=== PATIENT | male | born 1995 | race Caucasian/White ===

== ENCOUNTER 2020-06-28 13:38 | Emergency (ER) | payer MEDICAID, OTHER ==
[2020-06-28] MEDS ORDERED: Sodium Chloride 0.9% 10 ML Syringe FLUSH PRN (13:50)
[2020-06-28] MEDS ORDERED: Sodium Chloride 0.9% 2.5 ML Syringe FLUSH PRN (13:50)
[2020-06-28] MEDS ORDERED: Lactated Ringers 1,000 ML IV ONE ×2 (13:52)
--- NOTE | 2020-06-28 14:09 | EDM.PDOC ---
ED HPI GENERAL MEDICAL PROBLEM - General Chief Complaint: Respiratory Problem Stated Complaint: SHORTNESS OF BREATH; AB PAIN Time Seen by Provider: 06/28/20 13:43 Source of Information: Reports: Patient, Old Records History Limitations: Reports: No Limitations - History of Present Illness INITIAL COMMENTS - FREE TEXT/NARRATIVE: 25-year-old male with no past medical history presenting with whole body cramping along with nausea and vomiting. Patient reports the onset of severe cramps in his hands yesterday evening while at work. This progressed to whole body cramping along with about 6 episodes of nonbloody emesis since yesterday evening. Also reports some mild shortness of breath and an occasional nonproductive cough. Patient initially went to primary medical clinic and was noted to be ill-appearing so he was directed to the emergency department. Here the patient's primary complaint is whole body cramping, worst in his left leg. He denies any fever, chills, chest discomfort, abdominal pain, hematemesis, diarrhea, rectal bleeding, recent illness or contact with known coronavirus patients. ROS: A 10-point review of systems was negative, except as noted in the HPI (or in the ROS section of this note). Past medical history: Reviewed, no additional pertinent history. Surgical history: Reviewed in system, no additional pertinent history. Social history: Reviewed in system, no additional pertinent history. Family history: Reviewed in system, no additional pertinent history. PHYSICAL EXAM Vital signs reviewed. Nursing notes reviewed. Constitutional: Awake, alert, non-distressed. Head: Normocephalic, atraumatic. Eyes: EOMI, conjunctiva normal, no discharge, no scleral icterus. Ears, Nose, Throat: External ears and nose normal, moist oral mucosa. Cardiovascular: Tachycardic, 2+ radial pulse, capillary refill less than 2 seconds. Pulmonary: normal work of breathing, no accessory muscle use. Soft expiratory wheezing Abdomen/GI: Obese, soft, nontender, nondistended, no guarding or rigidity, no masses. Musculoskeletal: No deformities. Integumentary: Appropriate color for ethnicity, warm, dry, no pallor or jaundice, no rash. Neurologic: Alert, answering questions appropriately, normal speech, no facial droop, moving all extremities well. Psychiatric: Appropriate mood and affect, normal thought process. - Related Data Allergies Allergy/AdvReac Type Severity Reaction Status Date / Time No Known Allergies Allergy Verified 06/28/20 15:03 Home Meds: Home Meds . [No Known Home Meds] 06/28/20 [History] ED ROS GENERAL - Review of Systems Review Of Systems: See Below ED EXAM, GENERAL - Physical Exam Exam: See Below Course - Vital Signs Text/Narrative:: On arrival the patient was initially hypotensive with a systolic blood pressure in the 70s and a heart rate of 120. IV access was established and 2 L of lactated Ringer's were rapidly infused, with improvement of his blood pressure. Blood cultures were sent off along with labs. Labs returned showing multiple derangements including significant leukocytosis with neutrophilic predominance. Lactate is 2.4. INR normal. Hyponatremia to 127. Creatinine significantly elevated at 3.9. AST and ALT are both elevated. CK 1809, diagnostic for rhabdomyolysis. Troponin I is elevated 0.187. Twelve- lead EKG is suspicious for pericarditis. Urinalysis does not appear infected. COVID testing is negative. We obtained noncontrast CT imaging of the chest, abdomen, and pelvis. This showed no acute or infectious findings. The etiology of the patient's multiple laboratory abnormalities is not entirely clear at this point, but I do have significant concern for either a viral infectious process causing myopericarditis, or endocarditis. Patient was given IV vancomycin and Zosyn, and started on maintenance fluids at 200 mL/h for the rhabdomyolysis. Nausea treated with Zofran. Did not have any recurrence of hypotension after fluid resuscitation. Vasopressors were not indicated as the patient was not hypotensive again and lactate was under 4. I did speak with our hospitalist Dr. Flores who did not feel comfortable admitting the patient here due to multiple organ system involvement. We will plan to transfer the patient to [facility] in [place]. I spoke with Dr. Martin who agrees to admit the transfer. Transferred by ambulance. Last Recorded V/S: Last Vital Signs Temp 35.8 C L 06/28/20 15:04 Pulse 117 H 06/28/20 16:47 Resp 17 06/28/20 16:47 BP 140/70 06/28/20 16:47 Pulse Ox 98 06/28/20 16:47 - Orders/Labs/Meds Orders: Active Orders 24 hr Category Date Time Status Cardiac Monitoring [RC] CONTINUOUS Care 06/28/20 13:51 Active EKG Documentation Completion [RC] STAT Care 06/28/20 13:50 Active Overnight Pulse Oximetry [RC] Click to Edit Care 06/28/20 13:51 Active CULTURE BLOOD [BC] Stat Lab 06/28/20 14:04 Received CULTURE BLOOD [BC] Stat Lab 06/28/20 14:13 Received Lactated Ringers [Ringers, Lactated] 1,000 ml Med 06/28/20 15:30 Active IV ASDIRECTED Sodium Chloride 0.9% [Saline Flush] Med 06/28/20 13:50 Active 10 ml FLUSH ASDIRECTED PRN Sodium Chloride 0.9% [Saline Flush] Med 06/28/20 13:50 Active 2.5 ml FLUSH ASDIRECTED PRN VANCOmycin/Water for INJ (PEG) [VANCOmycin 1.5 GM/300 Med 06/28/20 15:30 Active ML Premix] 1.5 gm Premix Bag 1 bag IV ONETIME Blood Culture x2 Reflex Set [OM.PC] Stat Ot 06/28/20 13:51 Ordered Pulse Oximetry Continuous Monitoring [OM.PC] Routine Ot 06/28/20 13:50 Ordered Saline Lock Insert [OM.PC] Stat Ot 06/28/20 13:51 Ordered Severe Sepsis Onset Time [OM.PC] Stat Ot 06/28/20 15:05 Ordered Medication Orders Vancomycin HCl 1.5 gm/ Premix 300 mls @ 150 mls/hr IV ONETIME RUTH Last Admin: 06/28/20 16:41 Dose: 150 mls/hr Documented by: MYLES Lactated Ringer's (Ringers, Lactated) 1,000 mls @ 200 mls/hr IV ASDIRECTED RUTH Last Admin: 06/28/20 15:57 Dose: 200 mls/hr Documented by: MYLES Sodium Chloride (Saline Flush) 10 ml FLUSH ASDIRECTED PRN PRN Reason: Keep Vein Open Last Admin: 06/28/20 14:30 Dose: 10 ml Documented by: MYLES Sodium Chloride (Saline Flush) 2.5 ml FLUSH ASDIRECTED PRN PRN Reason: Keep Vein Open Last Admin: 06/28/20 14:30 Dose: 2.5 ml Documented by: MYLES Labs: Laboratory Tests 06/28/20 06/28/20 06/28/20 Range/Units 14:04 14:04 14:04 WBC 24.65 H (4.0-11.0) K/uL RBC 5.56 (4.50-5.90) M/uL Hgb 16.9 (13.0-17.0) g/dL Hct 47.8 (38.0-50.0) % MCV 86.0 (80.0-98.0) fL MCH 30.4 (27.0-32.0) pg MCHC 35.4 (31.0-37.0) g/dL RDW Std Deviation 40.1 (28.0-62.0) fl RDW Coeff of Lizzie 13 (11.0-15.0) % Plt Count 412 H (150-400) K/uL MPV 10.10 (7.40-12.00) fL Neut % (Auto) 84.9 H (48.0-80.0) % Lymph % (Auto) 9.5 L (16.0-40.0) % [place] % (Auto) 5.5 (0.0-15.0) % Eos % (Auto) 0.0 (0.0-7.0) % Baso % (Auto) 0.1 (0.0-1.5) % Neut # (Auto) 20.9 H (1.4-5.7) K/uL Lymph # (Auto) 2.3 (0.6-2.4) K/uL [place] # (Auto) 1.4 H (0.0-0.8) K/uL Eos # (Auto) 0.0 (0.0-0.7) K/uL Baso # (Auto) 0.0 (0.0-0.1) K/uL Nucleated RBC % 0.0 /100WBC Nucleated RBCs # 0 K/uL INR 1.02 Lactate (0.20-2.00) mmol/L Sodium 127 L (136-148) mmol/L Potassium 3.9 (3.5-5.1) mmol/L Chloride 87 L (98-107) mmol/L Carbon Dioxide 21.3 (21.0-32.0) mmol/L BUN 41 H (7.0-18.0) mg/dL Creatinine 3.9 H (0.8-1.3) mg/dL Est Cr Clr Drug Dosing TNP Estimated GFR (MDRD) 19.3 ml/min Glucose 132 H (74-106) mg/dL Calcium 10.2 H (8.5-10.1) mg/dL Phosphorus 7.4 H (2.6-4.7) mg/dL Magnesium 3.6 H (1.8-2.4) mg/dL Total Bilirubin 0.6 (0.2-1.0) mg/dL AST 60 H (15-37) IU/L ALT 129 H (14-63) IU/L Alkaline Phosphatase 110 (46-116) U/L Creatine Kinase (26-308) U/L Troponin I 0.187 H* (0.000-0.056) ng/mL Total Protein 10.1 H (6.4-8.2) g/dL Albumin 5.1 H (3.4-5.0) g/dL Globulin 5.0 H (2.6-4.0) g/dL Albumin/Globulin Ratio 1.0 (0.9-1.6) Urine Color Urine Appearance Urine pH (5.0-8.0) Ur Specific [place] (1.001-1.035) Urine Protein (NEGATIVE) mg/dL Urine Glucose (UA) (NEGATIVE) mg/dL Urine Ketones (NEGATIVE) mg/dL Urine Occult Blood (NEGATIVE) Urine Nitrite (NEGATIVE) Urine Bilirubin (NEGATIVE) Urine Urobilinogen (<2.0) EU/dL Ur Leukocyte Esterase (NEGATIVE) U Hyaline Cast (Auto) (0-2/LPF) Urine RBC (0-2/HPF) Urine WBC (0-5/HPF) Ur Epithelial Cells (NONE-FEW) Urine Bacteria (NEGATIVE) Fine Granular Casts (NEGATIVE) Urine Mucus (NONE-MOD) COVID-19 (ARLENE) (NEGATIVE) 06/28/20 06/28/20 06/28/20 Range/Units 14:04 14:04 14:15 WBC (4.0-11.0) K/uL RBC (4.50-5.90) M/uL Hgb (13.0-17.0) g/dL Hct (38.0-50.0) % MCV (80.0-98.0) fL MCH (27.0-32.0) pg MCHC (31.0-37.0) g/dL RDW Std Deviation (28.0-62.0) fl RDW Coeff of Lizzie (11.0-15.0) % Plt Count (150-400) K/uL MPV (7.40-12.00) fL Neut % (Auto) (48.0-80.0) % Lymph % (Auto) (16.0-40.0) % [place] % (Auto) (0.0-15.0) % Eos % (Auto) (0.0-7.0) % Baso % (Auto) (0.0-1.5) % Neut # (Auto) (1.4-5.7) K/uL Lymph # (Auto) (0.6-2.4) K/uL [place] # (Auto) (0.0-0.8) K/uL Eos # (Auto) (0.0-0.7) K/uL Baso # (Auto) (0.0-0.1) K/uL Nucleated RBC % /100WBC Nucleated RBCs # K/uL INR Lactate 2.4 H* (0.20-2.00) mmol/L Sodium (136-148) mmol/L Potassium (3.5-5.1) mmol/L Chloride (98-107) mmol/L Carbon Dioxide (21.0-32.0) mmol/L BUN (7.0-18.0) mg/dL Creatinine (0.8-1.3) mg/dL Est Cr Clr Drug Dosing Estimated GFR (MDRD) ml/min Glucose (74-106) mg/dL Calcium (8.5-10.1) mg/dL Phosphorus (2.6-4.7) mg/dL Magnesium (1.8-2.4) mg/dL Total Bilirubin (0.2-1.0) mg/dL AST (15-37) IU/L ALT (14-63) IU/L Alkaline Phosphatase (46-116) U/L Creatine Kinase 1809 H (26-308) U/L Troponin I (0.000-0.056) ng/mL Total Protein (6.4-8.2) g/dL Albumin (3.4-5.0) g/dL Globulin (2.6-4.0) g/dL Albumin/Globulin Ratio (0.9-1.6) Urine Color DARK YELLOW Urine Appearance SLT CLOUDY Urine pH 5.0 (5.0-8.0) Ur Specific [place] >= 1.030 (1.001-1.035) Urine Protein 100 H (NEGATIVE) mg/dL Urine Glucose (UA) NEGATIVE (NEGATIVE) mg/dL Urine Ketones 15 H (NEGATIVE) mg/dL Urine Occult Blood MODERATE H (NEGATIVE) Urine Nitrite NEGATIVE (NEGATIVE) Urine Bilirubin NEGATIVE (NEGATIVE) Urine Urobilinogen 0.2 (<2.0) EU/dL Ur Leukocyte Esterase NEGATIVE (NEGATIVE) U Hyaline Cast (Auto) 5-10 (0-2/LPF) Urine RBC 1-5 (0-2/HPF) Urine WBC 0-2 (0-5/HPF) Ur Epithelial Cells OCCASIONAL (NONE-FEW) Urine Bacteria RARE (NEGATIVE) Fine Granular Casts 0-1 (NEGATIVE) Urine Mucus LIGHT (NONE-MOD) COVID-19 (ARLENE) (NEGATIVE) 06/28/20 06/28/20 06/28/20 Range/Units 15:15 17:53 18:30 WBC (4.0-11.0) K/uL RBC (4.50-5.90) M/uL Hgb (13.0-17.0) g/dL Hct (38.0-50.0) % MCV (80.0-98.0) fL MCH (27.0-32.0) pg MCHC (31.0-37.0) g/dL RDW Std Deviation (28.0-62.0) fl RDW Coeff of Lizzie (11.0-15.0) % Plt Count (150-400) K/uL MPV (7.40-12.00) fL Neut % (Auto) (48.0-80.0) % Lymph % (Auto) (16.0-40.0) % [place] % (Auto) (0.0-15.0) % Eos % (Auto) (0.0-7.0) % Baso % (Auto) (0.0-1.5) % Neut # (Auto) (1.4-5.7) K/uL Lymph # (Auto) (0.6-2.4) K/uL [place] # (Auto) (0.0-0.8) K/uL Eos # (Auto) (0.0-0.7) K/uL Baso # (Auto) (0.0-0.1) K/uL Nucleated RBC % /100WBC Nucleated RBCs # K/uL INR Lactate 1.1 (0.20-2.00) mmol/L Sodium (136-148) mmol/L Potassium (3.5-5.1) mmol/L Chloride (98-107) mmol/L Carbon Dioxide (21.0-32.0) mmol/L BUN (7.0-18.0) mg/dL Creatinine (0.8-1.3) mg/dL Est Cr Clr Drug Dosing Estimated GFR (MDRD) ml/min Glucose (74-106) mg/dL Calcium (8.5-10.1) mg/dL Phosphorus (2.6-4.7) mg/dL Magnesium (1.8-2.4) mg/dL Total Bilirubin (0.2-1.0) mg/dL AST (15-37) IU/L ALT (14-63) IU/L Alkaline Phosphatase (46-116) U/L Creatine Kinase (26-308) U/L Troponin I 0.203 H* (0.000-0.056) ng/mL Total Protein (6.4-8.2) g/dL Albumin (3.4-5.0) g/dL Globulin (2.6-4.0) g/dL Albumin/Globulin Ratio (0.9-1.6) Urine Color Urine Appearance Urine pH (5.0-8.0) Ur Specific [place] (1.001-1.035) Urine Protein (NEGATIVE) mg/dL Urine Glucose (UA) (NEGATIVE) mg/dL Urine Ketones (NEGATIVE) mg/dL Urine Occult Blood (NEGATIVE) Urine Nitrite (NEGATIVE) Urine Bilirubin (NEGATIVE) Urine Urobilinogen (<2.0) EU/dL Ur Leukocyte Esterase (NEGATIVE) U Hyaline Cast (Auto) (0-2/LPF) Urine RBC (0-2/HPF) Urine WBC (0-5/HPF) Ur Epithelial Cells (NONE-FEW) Urine Bacteria (NEGATIVE) Fine Granular Casts (NEGATIVE) Urine Mucus (NONE-MOD) COVID-19 (ARLNEE) NEGATIVE (NEGATIVE) Meds: Medications Generic Name Dose Route Start Last Admin Trade Name Freq PRN Reason Stop Dose Admin Vancomycin HCl 1.5 gm/ Premix 300 mls @ 150 mls/hr 06/28/20 15:30 06/28/20 16:41 IV 150 mls/hr ONETIME RUTH Administration Lactated Ringer's 1,000 mls @ 200 mls/hr 06/28/20 15:30 06/28/20 15:57 Ringers, Lactated IV 200 mls/hr ASDIRECTED RUTH Administration Sodium Chloride 10 ml 06/28/20 13:50 06/28/20 14:30 Saline Flush FLUSH 10 ml ASDIRECTED PRN Administration Keep Vein Open Sodium Chloride 2.5 ml 06/28/20 13:50 06/28/20 14:30 Saline Flush FLUSH 2.5 ml ASDIRECTED PRN Administration Keep Vein Open Discontinued Medications Generic Name Dose Route Start Last Admin Trade Name Freq PRN Reason Stop Dose Admin Acetaminophen 1,000 mg 06/28/20 16:26 06/28/20 18:27 Tylenol Extra Strength PO 06/28/20 16:27 Not Given ONETIME ONE Lactated Ringer's 1,000 mls @ 999 mls/hr 06/28/20 13:52 06/28/20 14:30 Ringers, Lactated IV 06/28/20 14:52 999 mls/hr .BOLUS ONE Administration Lactated Ringer's 1,000 mls @ 999 mls/hr 06/28/20 13:52 06/28/20 14:30 Ringers, Lactated IV 06/28/20 14:52 999 mls/hr .BOLUS ONE Administration Piperacillin Sod/Tazobactam 100 mls @ 200 mls/hr 06/28/20 15:05 06/28/20 15:59 Sod 4.5 gm/ Sodium Chloride IV 06/28/20 15:34 Not Given STAT ONE Piperacillin Sod/Tazobactam 100 mls @ 200 mls/hr 06/28/20 15:15 06/28/20 16:01 Sod 4.5 gm/ Sodium Chloride IV 06/28/20 15:44 200 mls/hr STAT ONE Administration Lidocaine 700 mg 06/28/20 16:26 06/28/20 18:27 Lidoderm 5% TOP 06/28/20 16:27 Not Given ONETIME ONE Ondansetron HCl 4 mg 06/28/20 16:17 06/28/20 16:25 Zofran IVPUSH 06/28/20 16:18 4 mg ONETIME ONE Administration Vancomycin HCl 1 dose 06/28/20 15:07 06/28/20 16:02 Pharmacy To Dose - Vancomycin .XX 06/28/20 15:08 Not Given ONETIME ONE Departure - Departure Time of Disposition: 14:00 Disposition: DC/Tfer to Acute Hospital 02 Condition: Fair Clinical Impression: NSTEMI (non-ST elevated myocardial infarction) - Discharge Information Referrals: PCP,Unknown [Primary Care Provider] - Forms: ED Department Discharge Critical Care Note - Critical Care Note Total Time (mins): 30 Comments: Critical care time is exclusive of billable procedures and the time to perform these procedures. Critical care time was used to prevent vital system organ failure and deterioration. Critical care time includes bedside management and high-complexity decision making requiring my highest level of mental preparedness and attention. This includes reviewing the patient's chart and prior medical records, ordering and reviewing interpreting laboratory studies and imaging results, interpretation of vital signs and EKG, pulse oximetry, and discussion with the admitting team along with EMS and nursing staff. Hypotension requiring aggressive fluid resuscitation. Multisystem organ failure including renal failure, myocardial infarction, rhabdomyolysis requiring aggressive IV fluids, broad-spectrum antibiotics, transfer to higher level of care. Sepsis Event Note (ED) - Focused Exam Vital Signs: Vital Signs Temp Pulse Resp BP Pulse Ox 06/28/20 16:47 117 H 17 140/70 98 06/28/20 15:49 114 H 23 H 137/80 99 06/28/20 15:04 35.8 C L 121 H 20 70/34 L 97 06/28/20 14:32 103 H 20 138/96 H 100 06/28/20 13:45 35.8 C L 121 H 20 70/34 L 97 - My Orders Last 24 Hours: My Active Orders 06/28/20 13:50 EKG Documentation Completion [RC] STAT Sodium Chloride 0.9% [Saline Flush] 10 ml FLUSH ASDIRECTED PRN Sodium Chloride 0.9% [Saline Flush] 2.5 ml FLUSH ASDIRECTED PRN Pulse Oximetry Continuous Monitoring [OM.PC] Routine 06/28/20 13:51 Cardiac Monitoring [RC] CONTINUOUS Overnight Pulse Oximetry [RC] Click to Edit Blood Culture x2 Reflex Set [OM.PC] Stat Saline Lock Insert [OM.PC] Stat 06/28/20 14:04 CULTURE BLOOD [BC] Stat 06/28/20 14:13 CULTURE BLOOD [BC] Stat 06/28/20 15:05 Severe Sepsis Onset Time [OM.PC] Stat 06/28/20 15:30 Lactated Ringers [Ringers, Lactated] 1,000 ml IV ASDIRECTED VANCOmycin/Water for INJ (PEG) [VANCOmycin 1.5 GM/300 ML Premix] 1.5 gm Premix Bag 1 bag IV ONETIME - Assessment/Plan Last 24 Hours: My Active Orders 06/28/20 13:50 EKG Documentation Completion [RC] STAT Sodium Chloride 0.9% [Saline Flush] 10 ml FLUSH ASDIRECTED PRN Sodium Chloride 0.9% [Saline Flush] 2.5 ml FLUSH ASDIRECTED PRN Pulse Oximetry Continuous Monitoring [OM.PC] Routine 06/28/20 13:51 Cardiac Monitoring [RC] CONTINUOUS Overnight Pulse Oximetry [RC] Click to Edit Blood Culture x2 Reflex Set [OM.PC] Stat Saline Lock Insert [OM.PC] Stat 06/28/20 14:04 CULTURE BLOOD [BC] Stat 06/28/20 14:13 CULTURE BLOOD [BC] Stat 06/28/20 15:05 Severe Sepsis Onset Time [OM.PC] Stat 06/28/20 15:30 Lactated Ringers [Ringers, Lactated] 1,000 ml IV ASDIRECTED VANCOmycin/Water for INJ (PEG) [VANCOmycin 1.5 GM/300 ML Premix] 1.5 gm Premix Bag 1 bag IV ONETIME
[2020-06-28 14:45] LABS: BLOOD UREA NITROGEN,BUN 41 mg/dL (7.0-18.0); CARBON DIOXIDE,CO2 21.3 mmol/L (21.0-32.0); CHLORIDE,CL 87 mmol/L (98-107); GLUCOSE RANDOM 132 mg/dL (74-106); POTASSIUM,K 3.9 mmol/L (3.5-5.1); SODIUM,NA 127 mmol/L (136-148)
[2020-06-28] MEDS ORDERED: Piperacillin/Tazobactam 4.5 GM in Sodium Chloride 0.9% 100 ML IV ONE ×2 (15:05→15:15)
--- NOTE | 2020-06-28 15:21 | CR ---
Chest: Portable view of the chest was obtained. No prior chest imaging is available. Comparison heart size and mediastinum are normal. Lungs are clear with no acute parenchymal change. Bony structures appear within normal limits. Impression: 1. Nothing acute is appreciated on portable chest x-ray. Diagnostic code #1 This report was dictated in MDT
[2020-06-28] MEDS ORDERED: Lactated Ringers 1,000 ML IV SCH (15:30)
--- NOTE | 2020-06-28 15:47 | CT ---
CT abdomen and pelvis Technique: Multiple axial sections were obtained from above the dome of the diaphragm inferiorly through the pubic symphysis. Intravenous and oral contrast not utilized. Comparison: No prior abdominal imaging is available. Findings: Visualized lung bases show nothing acute. Noncontrast appearance of the liver and spleen appear within normal limits. No focal parenchymal abnormality is appreciated. Adrenal glands show no nodule. Gallbladder contains no calcified gallstones. Kidneys show no abnormal calcifications. No ureteral dilatation or ureteral stone is seen. Pancreas shows no discrete abnormality. Aorta shows no aneurysm. Duplicated inferior vena cava is noted. No retroperitoneal adenopathy or mesenteric abnormalities are seen. Appendix is seen which is normal. No pelvic mass or adenopathy is appreciated. No free fluid or inflammatory change is appreciated. No bowel dilatation is seen. Bone window settings were reviewed which shows nothing acute within the visualized osseous structures. Impression: 1. Nothing acute is appreciated on noncontrast CT study of the abdomen and pelvis. Diagnostic code #1 This report was dictated in MDT
--- NOTE | 2020-06-28 15:49 | CT ---
CT chest Technique: Multiple axial sections through the chest were obtained. Intravenous contrast was not utilized. Comparison: Prior chest x-ray performed earlier on the same day (2:50 PM). Findings: Aorta shows no aneurysm. Slight density within the superior mediastinum is seen compatible with residual thymic tissue. No mediastinal adenopathy is seen. No hilar adenopathy is seen. No pericardial thickening is seen. Lungs are clear. No acute parenchymal change is seen. No pleural effusions are noted. Bone window settings were reviewed which shows no acute osseous finding. Impression: 1. Nothing acute is appreciated on noncontrast CT study of the chest. Diagnostic code #1 This report was dictated in MDT
[2020-06-28] MEDS ORDERED: Ondansetron 4 MG/2 ML SDV IVPUSH ONE (16:17)
[2020-06-28] MEDS ORDERED: Acetaminophen 500 MG Tab PO ONE (16:26)
[2020-06-28] MEDS ORDERED: Lidocaine 5% 700 MG Patch TOP ONE (16:26)
== END 2020-06-28 18:50 ==
LOC: MW.ED 13:38
DX: I21.4 Non-ST elevation (NSTEMI) myocardial infarction (principal); R11.2 Nausea with vomiting, unspecified; Z20.828 Contact with and (suspected) exposure to other viral communicable diseases
CPT/HCPCS: 36415; 71045; 71250; 74176; 80053; 81001; 82550; 83605; 83735; 84100; 84484; 85025; 85610; 87040; 87635; 96361; 96365; 96366; 96367; 96375; 99285; J2405; J2543; J3370; J7050; J7120; 99291; U0002

== ENCOUNTER 2021-11-12 12:45 | Emergency (ER) | payer OTHER ==
--- NOTE | 2021-11-12 14:21 | EDM.PDOC ---
ED HPI GENERAL MEDICAL PROBLEM - General Chief Complaint: Lower Extremity Injury/Pain Stated Complaint: RT ANKLE HURT FALLING OFF RAIL CAR Time Seen by Provider: 11/12/21 12:53 Source of Information: Reports: Patient History Limitations: Reports: No Limitations - History of Present Illness INITIAL COMMENTS - FREE TEXT/NARRATIVE: HISTORY AND PHYSICAL: History of present illness: Patient is a 26-year-old male who presents emergency room today with concern of right ankle injury that occurred just prior to arrival to the emergency room. Patient states that he was working on a roadway and when he had stepped off the car, he had misplaced his right foot and twisted his ankle. Patient states that he caught himself and did not completely fall but since then has had a hard time putting weight on the right ankle and has had swelling. Patient denies any other resuscitative injury. Patient denies fever, chills, chest pain, shortness of breath, or cough. Denies headache, neck stiff ness, change in vision, syncope, or near syncope. Denies nausea, vomiting, abdominal pain, diarrhea, constipation, or dysuria. Has not noted any blood in urine or stool. Patient has been eating and drinking appropriately. Review of systems: As per history of present illness and below otherwise all systems reviewed and negative. Past medical history: As per history of present illness and as reviewed below otherwise noncontributory. Surgical history: As per history of present illness and as reviewed below otherwise noncontributory. Social history: See social history for further information Family history: As per history of present illness and as reviewed below otherwise noncontributory. Physical exam: General: Patient is alert, oriented, and in no acute distress. Patient sitting comfortably on exam table. Vitals stable and reviewed by me. HEENT: Atraumatic, normocephalic, pupils equal and reactive bilaterally, negative for conjunctival pallor or scleral icterus, mucous membranes moist, throat clear, neck supple, nontender, trachea midline. No drooling or trismus noted. No meningeal signs. No hot potato voice noted. Lungs: Clear to auscultation, breath sounds equal bilaterally, chest nontender. Heart: S1S2, regular rate and rhythm without overt murmur Abdomen: Soft, nondistended, nontender. Negative for masses or hepatosplenomegaly. Negative for costovertebral tenderness. Pelvis: Stable nontender. Genitourinary: Deferred. Rectal: Deferred. Skin: Intact, warm, dry. No lesions or rashes noted. Extremities: The right lower extremity lateral malleolus is moderately edematous with pain to palpation. Patient does not able to bear weight without significant pain. Patient does have limited range of motion of the right ankle due to pain but does have full range of motion of the remainder right lower extremity. All compartments are soft of the right lower extremity. Dorsalis pedis and posterior tibial pulses are grossly intact with capillary refill less than 2 seconds of the right lower extremity. Otherwise, atraumatic, negative for cords or calf pain. Neurovascular unremarkable. Neuro: Awake, alert, oriented. Cranial nerves II through XII unremarkable. Cerebellum unremarkable. Motor and sensory unremarkable throughout. Exam nonfocal. Medical Decision Making: Signs and symptoms that were prompt return to the ED thoroughly discussed with patient. Discussed importance for follow-up with a primary care provider for reimaging in 10-14 days as he is not able to bear weight today. Voices understanding and is agreeable to plan of care. Denies any further questions or concerns at this time. Diagnostics: Foot and ankle x-ray, right Therapeutics: Walking boot and crutches Prescription: None Impression: Right ankle injury/strain Plan: 1. Rest, ice, elevate the affected extremity. You can apply ice 15 minutes on, 15 minutes off. Use the walking boot and crutches until follow-up with orthopedic provider/primary care provider for reimaging as discussed. 2. Tylenol and/or Ibuprofen as directed for pain management or discomfort. 3. Follow up with the Orthopedic provider as discussed. Return to the ED as needed and as discussed. Definitive disposition and diagnosis as appropriate pending reevaluation and review of above. R ankle Pain Score (Numeric/FACES): 6 - Related Data Allergies Allergy/AdvReac Type Severity Reaction Status Date / Time No Known Allergies Allergy Verified 11/12/21 12:49 Home Meds: Home Meds . [No Known Home Meds] 06/28/20 [History] Past Medical History HEENT History: Reports: None Cardiovascular History: Reports: None Respiratory History: Reports: None Gastrointestinal History: Reports: None Genitourinary History: Reports: None Musculoskeletal History: Reports: None Neurological History: Reports: None Psychiatric History: Reports: None Endocrine/Metabolic History: Reports: Obesity/BMI 30+ Hematologic History: Reports: None Immunologic History: Reports: None Oncologic (Cancer) History: Reports: None Dermatologic History: Reports: None - Infectious Disease History Infectious Disease History: Reports: Novel Coronavirus - Past Surgical History HEENT Surgical History: Reports: Tonsillectomy Cardiovascular Surgical History: Reports: None Respiratory Surgical History: Reports: None GI Surgical History: Reports: None Male Surgical History: Reports: None Endocrine Surgical History: Reports: None Neurological Surgical History: Reports: None Musculoskeletal Surgical History: Reports: None Dermatological Surgical History: Reports: None Social & Family History - Family History Family Medical History: No Pertinent Family History - Tobacco Use Tobacco Use Status *Q: Current Every Day Tobacco User Years of Tobacco use: 6 Packs/Tins Daily: 1 - Caffeine Use Caffeine Use: Reports: Coffee - Recreational Drug Use Recreational Drug Use: No Review of Systems - Review of Systems Review Of Systems: Comprehensive ROS is negative, except as noted in HPI. ED EXAM, GENERAL - Physical Exam Exam: See Below (see dictation) Course - Vital Signs Last Recorded V/S: Last Vital Signs Temp 97.5 F 11/12/21 15:01 Pulse 109 H 11/12/21 15:01 Resp 20 11/12/21 15:01 BP 145/96 H 11/12/21 15:01 Pulse Ox 96 11/12/21 15:01 - Orders/Labs/Meds Orders: Active Orders 24 hr Category Date Time Status DME for Discharge [COMM] Stat Oth 11/12/21 14:19 Ordered Departure - Departure Time of Disposition: 14:20 Disposition: Home, Self-Care 01 Clinical Impression: Right ankle injury - Discharge Information Instructions: Ankle Sprain, [id number] Referrals: PCP,None [Primary Care Provider] - Forms: ED Department Discharge Additional Instructions: The following information is given to patients seen in the emergency department who are being discharged to home. This information is to outline your options for follow-up care. We provide all patients seen in our emergency department with a follow-up referral. The need for follow-up, as well as the timing and circumstances, are variable depending upon the specifics of your emergency department visit. If you don't have a primary care physician on staff, we will provide you with a referral. We always advise you to contact your personal physician following an emergency department visit to inform them of the circumstance of the visit and for follow-up with them and/or the need for any referrals to a consulting specialist. The emergency department will also refer you to a specialist when appropriate. This referral assures that you have the opportunity for follow-up care with a specialist. All of these measure are taken in an effort to provide you with optimal care, which includes your follow-up. Under all circumstances we always encourage you to contact your private physician who remains a resource for coordinating your care. When calling for follow-up care, please make the office aware that this follow-up is from your recent emergency room visit. If for any reason you are refused follow-up, please contact the [facility] Emergency Department at and asked to speak to the emergency department charge nurse. [facility] [address] [place] [address] [id number] [facility] Professional [facility] [address] [place] [address] [address] [place] [address] 1. Rest, ice, elevate the affected extremity. You can apply ice 15 minutes on, 15 minutes off. Use the walking boot and crutches until follow-up with orthopedic provider/primary care provider for reimaging as discussed. 2. Tylenol and/or Ibuprofen as directed for pain management or discomfort. 3. Follow up with the Orthopedic provider as discussed. Return to the ED as needed and as discussed. Sepsis Event Note (ED) - Evaluation Sepsis Screening Result: No Definite Risk - Focused Exam Vital Signs: Vital Signs Temp Pulse Resp BP Pulse Ox 11/12/21 15:01 97.5 F 109 H 20 145/96 H 96 11/12/21 12:50 97.5 F 107 H 18 151/94 H 94 L - My Orders Last 24 Hours: My Active Orders 11/12/21 14:19 DME for Discharge [COMM] Stat - Assessment/Plan Last 24 Hours: My Active Orders 11/12/21 14:19 DME for Discharge [COMM] Stat
--- NOTE | 2021-11-12 14:58 | CR ---
Indication: Fell off train cart, rolled ankle, pain. Technique: Right ankle 3 views. Comparison: None. Findings: No acute fracture or dislocation. Small corticated osseous density along the dorsal aspect of talus is likely chronic. Ankle mortise is intact. Mild soft tissue swelling adjacent to the lateral malleolus. Impression: Mild soft tissue swelling adjacent to the lateral malleolus. No other acute findings. Dictated by Alexandria Tello MD @ 11/12/2021 2:57:13 PM (Electronically Signed)
--- NOTE | 2021-11-12 15:02 | CR ---
Indication: Fell off drinker, rolled ankle, pain. Technique: Right foot AP view. Comparison: None. Findings: No acute fracture or dislocation identified on this single view. Joint spaces are well preserved. Soft tissue swelling in the lateral aspect of the foot. Impression: Soft tissue swelling in the lateral aspect of the foot. No other acute findings. Dictated by Alexandria Tello MD @ 11/12/2021 3:00:11 PM (Electronically Signed)
== END 2021-11-12 15:02 | disposition home or self-care (01) ==
LOC: MW.ED 12:45
DX: S99.911A Unspecified injury of right ankle, initial encounter (principal); E66.9 Obesity, unspecified; Z68.42 Body mass index [BMI] 45.0-49.9, adult; Z72.0 Tobacco use; Z86.16 Personal history of COVID-19; X50.1XXA Overexertion from prolonged static or awkward postures, initial encounter; Y92.410 Unspecified street and highway as the place of occurrence of the external cause; Y99.0 Civilian activity done for income or pay
CPT/HCPCS: 73610-26-RT; 73610-RT; 73620-26-RT; 73620-RT; 99283-25

== ENCOUNTER 2022-12-28 01:45 | Emergency (ER) | payer BC, OTHER ==
[2022-12-28 03:11] LABS: ACETAMINOPHEN <2.0 ug/mL; BLOOD UREA NITROGEN,BUN 8 mg/dL (7.0-18.0); CARBON DIOXIDE,CO2 24.8 mmol/L (21.0-32.0); CHLORIDE,CL 103 mmol/L (98-107); GLUCOSE RANDOM 124 mg/dL (74-106); LIPASE 706 U/L (73-393); POTASSIUM,K 2.9 mmol/L (3.5-5.1); SODIUM,NA 139 mmol/L (136-148)
[2022-12-28 03:13] LABS: ESTIMATED GFR 126 mL/min (>60)
[2022-12-28] MEDS ORDERED: Potassium Chloride 10% 20 MEQ/15 ML Soln 30 ML UD Cup PO ONE (03:16)
== END 2022-12-28 06:00 ==
LOC: MW.ED 01:45
DX: R45.851 Suicidal ideations (principal); E87.6 Hypokalemia; F10.129 Alcohol abuse with intoxication, unspecified; R74.8 Abnormal levels of other serum enzymes; E66.9 Obesity, unspecified; Z68.43 Body mass index [BMI] 50.0-59.9, adult; Z20.822 Contact with and (suspected) exposure to COVID-19
CPT/HCPCS: 36415; 80053; 80143; 80179; 80305; 80307; 81001; 83690; 83735; 84443; 85025; 87635; 93005; 99285; A9270; U0002

== ENCOUNTER 2023-04-29 00:34 | Emergency (ER) | payer BC ==
[2023-04-29] MEDS ORDERED: Sodium Chloride 0.9% 1,000 ML IV ONE ×2 (00:55→01:30)
[2023-04-29] MEDS ORDERED: LORazepam 2 MG/ML SDV IVPUSH ONE (00:59)
[2023-04-29 01:08] LABS: HEMATOCRIT 44.1 % (38.0-50.0); HEMOGLOBIN 15.6 g/dL (13.0-17.0); MEAN CORPUSCULAR HEMOGLOBIN 31.3 pg (27.0-32.0); MEAN CORPUSCULAR HGB CONC 35.4 g/dL (31.0-37.0); MEAN CORPUSCULAR VOLUME 88.6 fL (80.0-98.0); NRBC ABSOLUTE 0 K/uL; PLATELET COUNT,PLT 358 K/uL (150-400); RED BLOOD CELL COUNT 4.98 M/uL (4.50-5.90); WHITE BLOOD CELL COUNT,WBC 16.26 K/uL (4.0-11.0)
[2023-04-29 01:33] LABS: BAND ABSOLUTE MAN 0.7; BAND PERCENT MAN 4 %; EOSINOPHILS ABSOLUTE MAN 0.7 (0.0-0.7); EOSINOPHILS PERCENT MAN 4 % (0.0-7.0); LYMPHOCYTES ABSOLUTE MAN 4.6 (0.6-2.4); LYMPHOCYTES PERCENT MAN 28 % (16.0-40.0); MONOCYTES ABSOLUTE MAN 0.7 (0.0-0.8); SEG NEUTROPHILS ABSOLUTE MAN 10.4 (1.4-5.7); SEG NEUTROPHILS PERCENT MAN 64 % (48.0-80.0)
[2023-04-29 01:42] LABS: A/G RATIO 0.9 (0.9-1.6); ALANINE AMINOTRANSFERASE,ALT 108 IU/L (14-63); ALBUMIN 3.9 g/dL (3.4-5.0); ALKALINE PHOSPHATASE 117 U/L (46-116); ASPARTATE AMNIOTRANSFERASE,AST 29 IU/L (15-37); BILIRUBIN TOTAL 0.3 mg/dL (0.2-1.0); BLOOD UREA NITROGEN,BUN 16 mg/dL (7.0-18.0); CALCIUM 9.3 mg/dL (8.5-10.1); CARBON DIOXIDE,CO2 24.8 mmol/L (21.0-32.0); CHLORIDE,CL 103 mmol/L (98-107); CREATININE 1.1 mg/dL (0.8-1.3); EST CRCL DRUG DOSING (CG) 99.32 mL/min; GLUCOSE RANDOM 118 mg/dL (74-106); MAGNESIUM 1.6 mg/dL (1.8-2.4); POTASSIUM,K 3.6 mmol/L (3.5-5.1); PROTEIN TOTAL,TP 8.2 g/dL (6.4-8.2); SODIUM,NA 139 mmol/L (136-148); TSH ULTRASENSITIVE 3.58 uIU/mL (0.36-3.74)
[2023-04-29 01:44] LABS: ESTIMATED GFR 96 mL/min (>60); ETHANOL BLOOD MEDICAL < 3.0 mg/dL
[2023-04-29] MEDS ORDERED: Magnesium Oxide 400 MG Tab PO ONE (01:45)
[2023-04-29] MEDS ORDERED: Metoprolol Tartrate 5 MG/5 ML SDV IVPUSH ONE (02:14)
== END 2023-04-29 02:35 | disposition home or self-care (01) ==
LOC: MW.ED 00:34
DX: R00.0 Tachycardia, unspecified (principal); E66.9 Obesity, unspecified; Z68.43 Body mass index [BMI] 50.0-59.9, adult; Z86.16 Personal history of COVID-19
CPT/HCPCS: 36415; 80053; 80307; 83735; 84443; 84484; 85025; 93005; 96361; 96374; 96375; 99285; A9270; J2060; J3490; J7030; 93010; 99284

== ENCOUNTER 2023-11-17 11:55 | Emergency (ER) | payer SELFPAY | END 2023-11-17 12:20 | disposition home or self-care (01) | LOC: MW.ED 11:55 | DX: K29.70 Gastritis, unspecified, without bleeding (principal); E66.9 Obesity, unspecified; Z68.43 Body mass index [BMI] 50.0-59.9, adult | CPT/HCPCS: 99284 ==